=== PATIENT | female | born 1985 | race Caucasian/White ===

== ENCOUNTER 2017-11-19 00:16 | Inpatient (IN) ==
--- NOTE | 2017-11-19 01:00 | Emergency Department Note ---
Disposition Clinical Impression: Cellulitis Qualifiers: Site of cellulitis: extremity Site of cellulitis of extremity: lower extremity Laterality: left Qualified Code(s): L03.116 - Cellulitis of left lower limb Disposition: Admitted As Inpatient Condition: Fair Time of Disposition: 05:24 Skin/Abscess/FB HPI Chief complaint: ED Skin/Abscess/Foreign Body Stated complaint: "MRSA" Time Seen by Provider: 11/19/17 00:42 Source: patient Mode of arrival: ambulatory Limitations: no limitations Nursing Notes Reviewed: Yes Vital Signs Reviewed: Yes HPI Narrative: Patient is a 32-year-old female who presents today due to cellulitis and abscesses of left thigh and left upper extremity. She states that over the past week, she got a tattoo and since then she has been developing small abscesses. She was seen twice within the past week at different facilities and she was prescribed Keflex and Bactrim. She has been taking both Keflex and Bactrim without any improvement. The areas were marked on her leg with a felt marker. She has noticed that the red areas are extending past the marked areas. She is also complaining of worsening pain, worsening swelling. Denies any nausea, vomiting, fevers, diarrhea, abdominal pain, chest pain, shortness of breath. Abscesses were not drained at previous visits. Home Medications Medication Instructions Recorded Confirmed Zoloft 07/21/17 Previous Rx's Medication Instructions Recorded Acetaminophen [Tylenol] 500 mg PO Q6HR PRN #20 tablet 07/21/17 predniSONE [PredniSONE] 20 mg PO BID #10 tablet 07/21/17 Allergies Allergy/AdvReac Type Severity Reaction Status Date / Time aspirin Allergy Swelling Verified 07/21/17 13:50 of Lip/Tongue/Throat Hydromorphone [From Dilaudid] Allergy See Verified 07/21/17 13:50 Comments Penicillins Allergy Swelling Verified 07/21/17 13:50 of Lip/Tongue/Throat All systems ED: reviewed and negative except as stated. Constitutional: Denies: fever Cardiovascular: Denies: chest pain, palpitations Respiratory: Denies: cough, dyspnea, wheezes Gastrointestinal: Denies: abdominal pain, nausea, vomiting, diarrhea Integumentary: Reports: lesions Neurological: Denies: headache, weakness, numbness, paresthesias Past Medical History - Past Medical History Attestation: Yes The following information was validated with the patient. Source: patient Medical history: Reports: fibromyalgia, thyroid disease, other Psychiatric history: Reports: no psych history - Social History Smoking Status: Current every day smoker Smokeless Tobacco Status: No Alcohol use: Reports: none Drug use: Reports: none Physical Exam - General Limitations: no limitations General appearance: alert, in no apparent distress - Head Head exam: atraumatic, normocephalic, normal inspection - Eye Eye exam: Present: normal appearance, PERRL, EOMI - ENT ENT exam: normal exam, normal oropharynx, mucous membranes moist - Neck Neck exam: Present: normal inspection, full ROM, trachea midline - Chest Chest inspection: Present: normal inspection, symmetric chest wall rise - Respiratory Respiratory exam: Present: normal lung sounds bilaterally - Cardiovascular Cardiovascular exam: Present: regular rate, normal rhythm, normal heart sounds - Abdominal Exam Abdominal exam: Present: soft, Non-Tender. Absent: tenderness, distention, guarding, rebound, rigidity - Extremities Exam Extremities exam: Present: full ROM, other (5 abscesses on the left lateral thigh each measuring approximately 1 cm x 1 cm, fluctuance of 3 of the 5. No active pus drainage. Cellulitis surrounding each abscess site extending past skin marker; 1x1cm left UE abscess fluctuance. ) - Neurological Exam Neurological exam: Present: alert, oriented X3 - Psychiatric Psychiatric exam: Present: normal affect, normal mood - Skin Skin exam: Present: warm, dry, intact, normal color, other (see extremity section above) Course Course Narrative: Patient is failing outpatient treatment at this time. She does not meet sepsis criteria. I performed incision and drainage on 4 out of the 6 abscesses. See procedure section for further detail. Patient was started on IV vancomycin and Levaquin. Could not start Zosyn due to allergy to penicillins. Patient was admitted for further care worsening cellulitis with failed outpatient treatment. Vital Signs Temperature 98.0 F 11/19/17 00:18 Pulse Rate 81 11/19/17 00:18 Respiratory Rate 16 11/19/17 00:18 Blood Pressure 116/70 11/19/17 00:18 O2 Sat by Pulse Oximetry 96 11/19/17 00:18 Temperature 98.0 F 11/19/17 03:36 Pulse Rate 63 11/19/17 03:36 Respiratory Rate 16 11/19/17 03:36 Blood Pressure 96/61 11/19/17 03:36 O2 Sat by Pulse Oximetry 96 11/19/17 03:36 Oxygen Delivery Oxygen Delivery Room Air Procedures - Abscess I/D Consent obtained: verbal consent Site: other (left leg, left arm; 3 sites on left thigh, one site on left arm near elbow) Side (if applicable): left Local Anesthetic: lidocaine 1%, with epi Amount of Anesthesia Used (mL): 3 Technique: incised with #11 blade Amount of fluid: 3 Irrigation: Yes Packing used?: none Skin/Abscess/Foreign Body - MDM Narrative Medical decision making narrative: Patient is failing outpatient treatment at this time. She does not meet sepsis criteria. I performed incision and drainage on 4 out of the 6 abscesses. See procedure section for further detail. Patient was started on IV vancomycin and Levaquin. Could not start Zosyn due to allergy to penicillins. Patient was admitted for further care worsening cellulitis with failed outpatient treatment. - Medical Records Medical records reviewed: Yes I reviewed the patient's medical records. - Lab Data Lab results reviewed: Yes I reviewed the patient's lab results. Result diagrams: 11/19/17 01:32 11/19/17 01:32 Lab Results 11/19/17 11/19/17 11/19/17 Range/Units 01:32 01:32 01:32 WBC 8.0 (4.3-11.1) K/mcL RBC 3.94 (3.82-4.97) M/mcL Hgb 13.6 (11.5-15.4) g/dL Hct 38.4 (35.3-44.9) % MCV 97.5 (83.0-100.0) fL MCH 34.5 H (28.0-33.3) pg MCHC 35.4 (31.6-35.5) g/dL RDW 12.5 (11.5-14.5) % Plt Count 161 (140-400) K/mcL MPV 8.8 L (9.4-12.4) fL Immature Gran % 0.2 (0-4) % Seg Neutrophils % 71.4 % Lymphocytes % 17.9 % Monocytes % 7.1 % Eosinophils % 2.9 % Basophils % 0.5 % Neutrophils # 5.7 (1.6-8.9) K/mcL Lymphocytes # 1.4 (0.6-4.6) K/mcL Monocytes # 0.6 (0.0-1.3) K/mcL Eosinophils # 0.2 (0.0-0.6) K/mcL Basophils # 0.0 (0.0-0.2) K/mcL Sodium 137 (136-145) mEq/L Potassium 3.5 (3.5-5.1) mEq/L Chloride 106 (98-107) mEq/L Carbon Dioxide 25 (23-29) mEq/L BUN 7 (6-20) mg/dL Creatinine 0.89 (0.60-1.20) mg/dL Est GFR ( Amer) > 60 (> 60) Est GFR (Non-Af Amer) > 60 (> 60) BUN/Creatinine Ratio 8 (6-26) Glucose 102 (70-105) mg/dL Calculated Osmolality 282 (280-300) Lactic Acid 0.6 (0.5-2.2) mmol/L Calcium 9.3 (8.6-10.3) mg/dL - Radiology Data Radiology results reviewed: Yes I reviewed the patient's radiology results. S.B.A.R. - S.B.A.R. Situation: Demographics, MOA Background: Presenting Complaint, Relevant PMH, Meds, & Allergies Assessment: Vital Signs, Course and respsone to treatment, Exam Concerns, Patient/Family Expectation, Pertinant Lab Results, Outstanding Labs Recommendation: Barrier(s) to disposition, Recommendation based on pending studies, treatments, or consults S.B.A.R. Report Given to: Dr. Schmidt Attestation Statement - Attestation Attestation: I examined this patient and my medical decision-making was reviewed with the Resident Physician. I agree with the documented findings, disposition and treatment plan as described except to the extent set forth below. Abscess and cellulitis following failed outpatient therapy with Keflex and Bactrim. We will start Levaquin as well as vancomycin and admit for further management after bedside I&D of abscesses over the left thigh.
[2017-11-19] MEDS ORDERED: Levofloxacin 750 MG/150 ML 750 MG/150 ML BAG IVPB ONE (01:19)
[2017-11-19] MEDS ORDERED: Lidocaine/EPI 1:100k 1% 20 ML VIAL INFILT ONE (01:39)
[2017-11-19 01:46] LABS: Basophils % 0.5 %; Eosinophils # 0.2 K/mcL (0.0-0.6); Eosinophils % 2.9 %; Hematocrit 38.4 % (35.3-44.9); Hemoglobin 13.6 g/dL (11.5-15.4); Immature Granulocytes % 0.2 % (0-4); Lymphocytes # 1.4 K/mcL (0.6-4.6); Lymphocytes % 17.9 %; Mean Corpuscular HGB Conc 35.4 g/dL (31.6-35.5); Mean Corpuscular Hemoglobin 34.5 pg (28.0-33.3); Mean Corpuscular Volume 97.5 fL (83.0-100.0); Mean Platelet Volume 8.8 fL (9.4-12.4); Monocytes # 0.6 K/mcL (0.0-1.3); Monocytes % 7.1 %; Neutrophils # 5.7 K/mcL (1.6-8.9); Platelet Count 161 K/mcL (140-400); Red Blood Count 3.94 M/mcL (3.82-4.97); Red Cell Distribution Width 12.5 % (11.5-14.5); Segmented Neutrophils % 71.4 %
[2017-11-19 02:07] LABS: BUN/Creatinine Ratio 8 (6-26); Blood Urea Nitrogen 7 mg/dL (6-20); Calcium 9.3 mg/dL (8.6-10.3); Carbon Dioxide 25 mEq/L (23-29); Chloride 106 mEq/L (98-107); Glucose 102 mg/dL (70-105); Osmolality,Calculated 282 (280-300); Potassium 3.5 mEq/L (3.5-5.1); Sodium 137 mEq/L (136-145); eGFR For African Americans > 60 (> 60); eGFR For Non-African Americans > 60 (> 60)
[2017-11-19] MEDS ORDERED: Naloxone 0.4 MG/ML INJ IVP PRN (03:12)
[2017-11-19] MEDS ORDERED: Acetaminophen 325 MG TABLET PO PRN (03:12)
--- NOTE | 2017-11-19 03:17 | Internal Med History&Physical ---
Date of Encounter: 11/19/17 Time of Encounter: 03:13 Internal Medicine - H&P: HPI Chief complaint: Left thigh abscesses Admitted From: Emergency Dept Plans for Post Hospital Care: Home History of present illness: Ms. Dunn is a 32 year old female with history of depression/anxiety who presented to the ED as she has noted worsening of left thigh abscesses. The patient story goes back to about a couple weeks ago when she had a tattoo placed to her left thigh. About 3 days after that she noted a couple of blisters which she squeezed and they opened. She says she scratched her left elbow at the site accidentally and ended up with an abscess at that elbow as well. She saw an urgent care clinic on Monday which is 6 days ago as she noted that the areas have become swollen and erythematous. She was put on Keflex at that time and a couple days later she was switched to Bactrim by her primary care physician. She then noted a couple more abscesses on the left thigh and ended up coming to the ED yesterday and at that point she was told to go back to taking Keflex on top of the Bactrim and blood cultures were drawn which have been negative to date. Today she noted that her abscesses were enlarging and erythema is expanding and came back to the ED where she underwent for I&D of small abscesses of the left thigh as well as an I&D of the left elbow abscess. She was given vancomycin. She was hemodynamically stable and denies any fever at home. Her labs were unremarkable. Patient denies any headache, blurry vision, nausea, vomiting, chest pain, shortness breath, abdominal pain, urinary symptoms, or neurological symptoms Past Med Surg Social Fam HX - Past Medical History Medical history: fibromyalgia, thyroid disease, other Psychiatric history: no psych history - Social History Smoking Status: Current every day smoker Smokeless Tobacco Status: No Alcohol use: none Drug use: none Internal Medicine - H&P: Meds Acetaminophen [Tylenol] 500 mg PO Q6HR PRN #20 tablet 07/21/17 [Rx] Zoloft 07/21/17 [History] predniSONE [PredniSONE] 20 mg PO BID #10 tablet 07/21/17 [Rx] 3 Allergy/AdvReac Type Severity Reaction Status Date / Time aspirin Allergy Swelling Verified 07/21/17 13:50 of Lip/Tongue/Throat Hydromorphone [From Dilaudid] Allergy See Verified 07/21/17 13:50 Comments Penicillins Allergy Swelling Verified 07/21/17 13:50 of Lip/Tongue/Throat All Systems PM: A 10-system review of systems was performed and is negative for pertinent findings except as documented above in the HPI. Review of systems: All systems reviewed are negative except for as mentioned above - Constitutional Vitals: Temp Pulse Resp BP Pulse Ox 98.0 F 78 16 118/74 97 11/19/17 00:57 11/19/17 02:31 11/19/17 02:31 11/19/17 02:31 11/19/17 02:31 Exam: GEN: NAD HEENT: AT, NC, No cyanosis, oral mucosa is moist, No JVD Lymphatics: No lymphadenoapthy Eyes: Extrocular muscles intact, anicteric CVS:RRR. S1, S2, No m/r/g RESP: CTAB ABD: Soft, NT, ND, +BS EXT: No edema, left thigh with 4 areas of erythema and small abscesses of different dimensions up to 6 cm x 4 cm. Those have been drained. They are tender to palpation, 2+ DP NEURO: Nonfocal, CN II-XII intact, No focal motor or sensory deficits Psych: Cooperative, Not anxious or depressed Internal Med - H&P Results - Labs CBC & Chem 7: 11/19/17 01:32 11/19/17 01:32 Labs: Short CBC 11/19/17 Range/Units 01:32 WBC 8.0 (4.3-11.1) K/mcL Hgb 13.6 (11.5-15.4) g/dL Hct 38.4 (35.3-44.9) % Plt Count 161 (140-400) K/mcL Neutrophils # 5.7 (1.6-8.9) K/mcL BMP 11/19/17 01:32 Sodium 137 Potassium 3.5 Chloride 106 Carbon Dioxide 25 BUN 7 Creatinine 0.89 Glucose 102 Calcium 9.3 - Assessment and plan (1) Cellulitis and abscess of left leg Current Visit: No Status: Acute Assessment and plan: Patient is status post I&D's of multiple abscesses. Follow up on wound cultures. Follow up on blood cultures drawn yesterday during her first visit to the ED. We will place the patient on IV vancomycin. (2) Depression Current Visit: Yes Status: Acute Assessment and plan: Continue home Zoloft once verified. Qualifiers: Depression Type: unspecified Qualified Code(s): F32.9 - Major depressive disorder, single episode, unspecified (3) DVT prophylaxis Current Visit: Yes Status: Acute Assessment and plan: SCDs - Time Spent With Patient Total time spent is greater than 50% in coordination of care (as documented) at patient's floor/unit and/or counseling patient:
[2017-11-19 07:15] VITALS: BP 78/48
[2017-11-19] MEDS ORDERED: ceFAZolin 1,000 MG in Water for inj. (sterile) 20 ML 10 ML IVPB SCH (08:06)
[2017-11-19] MEDS ORDERED: Aminoglycoside Consult 1 EACH MC ONE (10:19)
--- NOTE | 2017-11-19 10:28 | Event Note ---
Date of Encounter: 11/19/17 Time of Encounter: 10:26 Evaluated patient. While her wounds which were drained appear to be improving, there is another spot in her left thigh that appears to be developing abscesses. I recommended that she continue IV antibiotics for another day. However patient wishes to leave AMA as she does not have anyone to help with childcare. She does understand the risks of not receiving appropriate antibiotics and advised to return to ER if she gets worse. She will be prescribed oral clindamycin at this time.
== END 2017-11-19 10:20 | disposition left against medical advice (07) | DRG 383 ==
LOC: 3ANU 00:16 → EMEROO 00:16 → 3ANU 03:28
PROVIDERS: ADMIT Family Medicine; ATTEND Family Medicine

== ENCOUNTER → 2021-08-19 17:40 | Observation (INO) | END | disposition home or self-care (01) | LOC: 1NENULAB | PROVIDERS: ADMIT Student in an Organized Health Care Education/Training Program; ATTEND Student in an Organized Health Care Education/Training Program ==

== ENCOUNTER 2021-08-27 08:00 | Inpatient (IN) ==
[2021-08-27] MEDS ORDERED: Clindamycin 900 MG/50 ML 900 MG/50 ML IV.SOLN IVPB ONE (10:05)
[2021-08-27] MEDS ORDERED: Metoclopramide 10 MG/2 ML VIAL IVP ONE (10:05)
[2021-08-27] MEDS ORDERED: Famotidine 20 MG/2 ML VIAL IVP PRN (10:05)
[2021-08-27] MEDS ORDERED: Naloxone 0.4 MG/ML INJ IVP PRN (10:05)
[2021-08-27] MEDS ORDERED: Oxytocin 20 units/ LR 1000 mL 20 UNIT/1,000 ML BAG IVC ONE (10:05)
[2021-08-27] MEDS ORDERED: Famotidine 20 MG/2 ML VIAL IVP ONE (10:05)
[2021-08-27] MEDS ORDERED: Oxytocin 20 units/ LR 1000 mL 20 UNIT/1,000 ML BAG IVC SCH ×2 (10:15→16:19)
[2021-08-27] MEDS ORDERED: Ringers Solution, Lactated 1,000 ML IVC SCH (10:15)
[2021-08-27 11:19] LABS: Basophils % 0.3 %; Eosinophils % 0.2 %; Hematocrit 36.1 % (35.3-44.9); Hemoglobin 12.3 g/dL (11.5-15.4); Immature Granulocytes % 1.1 % (0-4); Immature Platelets 1.6 % (1.1-6.1); Lymphocytes % 10.8 %; Mean Corpuscular HGB Conc 34.1 g/dL (31.6-35.5); Mean Corpuscular Hemoglobin 34.6 pg (28.0-33.3); Mean Corpuscular Volume 101.4 fL (83.0-100.0); Mean Platelet Volume 9.3 fL (9.4-12.4); Monocytes # 0.5 K/mcL (0.0-1.3); Monocytes % 5.3 %; Neutrophils # 7.2 K/mcL (1.6-8.9); Platelet Count 106 K/mcL (140-400); Red Blood Count 3.56 M/mcL (3.82-4.97); Red Cell Distribution Width 12.1 % (11.5-14.5); Segmented Neutrophils % 82.3 %; White Blood Count 8.8 K/mcL (4.3-11.1)
[2021-08-27] MEDS ORDERED: Promethazine 6.25 MG in Water for inj. (sterile) 20 ML IVPB PRN (11:29)
[2021-08-27] MEDS ORDERED: Morphine Sulfate 2 MG/ML SYRINGE IVP PRN (11:29)
[2021-08-27] MEDS ORDERED: Acetaminophen IV 1,000 MG/100 ML BAG IVPB PRN (11:29)
[2021-08-27] MEDS ORDERED: *HR* Labetalol 20 MG/4 ML SYRINGE IVP PRN (11:29)
[2021-08-27] MEDS ORDERED: *HR* OxyCODONE Immed Rel 5 MG TABLET PO PRN ×2 (11:29→16:19)
[2021-08-27] MEDS ORDERED: *HR* FentaNYL (PF) 100 MCG/2 ML VIAL IVP PRN (11:29)
[2021-08-27 11:33] LABS: Amphetamine Screen,Urine Negative ng/mL (Cutoff=1000); Barbiturate Screen,Urine Negative ng/mL (Cutoff=200); Benzodiazepines Screen,Urine Negative ng/mL (Cutoff=200); Cannabinoid Screen,Urine Negative ng/mL (Cutoff = 50); Cocaine Screen,Urine Negative ng/mL (Cutoff= 300); Opiate Screen,Urine Negative ng/mL (Cutoff=300); Phencyclidine Screen,Urine Negative ng/mL (Cutoff=25)
[2021-08-27 11:52] LABS: Influenza A PCR Negative (Negative); Influenza B PCR Negative (Negative); Resp. Syncytial Virus PCR Negative (Negative); SARS-CoV-2 by PCR (In House) Negative (Negative)
[2021-08-27] MEDS ORDERED: Ketamine *HR* 500 MG/10 ML MDV ONE (12:14)
[2021-08-27] MEDS ORDERED: Ondansetron 4 MG/2 ML VIAL ONE (12:15)
[2021-08-27] MEDS ORDERED: Lidocaine -MPF 2% 5 ML VIAL ONE ×2 (12:15→12:46)
[2021-08-27] MEDS ORDERED: *HR* Succinylcholine 200 MG/10 ML VIAL IVP ONE (12:15)
[2021-08-27] MEDS ORDERED: *HR* FentaNYL (PF) 250 MCG/5 ML VIAL ONE (12:16)
[2021-08-27] MEDS ORDERED: *HR* Midazolam HCl 2 MG/2 ML VIAL ONE (12:16)
[2021-08-27] MEDS ORDERED: *HR* Rocuronium Bromide 50 MG/5 ML VIAL ONE (12:27)
[2021-08-27] MEDS ORDERED: Acetaminophen IV 1,000 MG/100 ML BAG IVPB ONE (12:29)
[2021-08-27] MEDS ORDERED: *HR* Oxytocin 10 UNIT/ML VIAL ONE (12:43)
[2021-08-27] MEDS ORDERED: *HR* Ropivacaine/PF 0.5% 20 ML VIAL ONE (12:50)
[2021-08-27] MEDS ORDERED: Ropivacaine/PF 0.2% 20 ML VIAL ONE (12:50)
[2021-08-27] MEDS ORDERED: Ketorolac 30 MG/ML VIAL ONE (13:00)
[2021-08-27] MEDS ORDERED: *HR* HYDROcodone/Acet 5/325 mg TABLET PO PRN (13:15)
[2021-08-27] MEDS ORDERED: metroNIDAZOLE 500 MG TABLET PO SCH (15:00)
[2021-08-27] MEDS ORDERED: Clindamycin 900 MG/50 ML 900 MG/50 ML IV.SOLN IVPB SCH (16:00)
[2021-08-27] MEDS ORDERED: Metoclopramide 10 MG/2 ML VIAL IVP PRN (16:19)
[2021-08-27] MEDS ORDERED: Simethicone 80 MG TAB.CHEW PO PRN (16:19)
[2021-08-27] MEDS ORDERED: Ondansetron 4 MG/2 ML VIAL IVP PRN (16:19)
[2021-08-27] MEDS: Ibuprofen 600 MG TABLET PO SCH ×2 (16:38→18:12)
[2021-08-27] MEDS: Clindamycin 900 MG/50 ML 900 MG/50 ML IV.SOLN IVPB SCH (18:18)
[2021-08-27] MEDS: metroNIDAZOLE 500 MG TABLET PO SCH ×4 (18:20→21:24)
[2021-08-27] MEDS: Acetaminophen 325 MG TABLET PO SCH ×2 (18:25→19:28)
[2021-08-27] MEDS: *HR* HYDROcodone/Acet 5/325 mg TABLET PO PRN ×2 (19:22→23:20)
[2021-08-27] MEDS: MetroNIDAZOLE 500 MG/100 ML 500 MG/100 ML BAG IVPB SCH (23:20)
[2021-08-28] MEDS: *HR* HYDROcodone/Acet 5/325 mg TABLET PO PRN ×5 (03:07→20:09)
[2021-08-28] MEDS: Acetaminophen 325 MG TABLET PO SCH ×3 (03:16→16:27)
[2021-08-28] MEDS: Ibuprofen 600 MG TABLET PO SCH ×3 (03:16→20:08)
[2021-08-28 03:53] LABS: Basophils % 0.1 %; Lymphocytes % 4.7 %; Mean Platelet Volume 9.6 fL (9.4-12.4)
[2021-08-28 03:54] LABS: Hematocrit 29.2 % (35.3-44.9); Hemoglobin 10.5 g/dL (11.5-15.4); Immature Granulocytes % 0.8 % (0-4); Immature Platelets 2.2 % (1.1-6.1); Lymphocytes # 0.8 K/mcL (0.6-4.6); Mean Corpuscular Hemoglobin 36.1 pg (28.0-33.3); Mean Corpuscular Volume 100.3 fL (83.0-100.0); Monocytes # 0.9 K/mcL (0.0-1.3); Monocytes % 5.4 %; Neutrophils # 14.2 K/mcL (1.6-8.9); Platelet Count 107 K/mcL (140-400); Red Blood Count 2.91 M/mcL (3.82-4.97); Red Cell Distribution Width 11.9 % (11.5-14.5)
[2021-08-28] MEDS: Clindamycin 900 MG/50 ML 900 MG/50 ML IV.SOLN IVPB SCH ×2 (05:39→20:15)
[2021-08-28] MEDS: MetroNIDAZOLE 500 MG/100 ML 500 MG/100 ML BAG IVPB SCH ×2 (09:06→16:28)
[2021-08-28] MEDS: Prenatal Vit/FA 1 EACH TABLET PO SCH (09:49)
[2021-08-28 20:36] VITALS: BP 108/68; PULSE 77; TEMP 98.1; O2SAT 100
[2021-08-29] MEDS: Acetaminophen 325 MG TABLET PO SCH (00:10)
[2021-08-29] MEDS: *HR* HYDROcodone/Acet 5/325 mg TABLET PO PRN ×3 (00:10→10:12)
[2021-08-29] MEDS: Ibuprofen 600 MG TABLET PO SCH (04:20)
[2021-08-29] MEDS: Prenatal Vit/FA 1 EACH TABLET PO SCH (10:12)
== END 2021-08-29 11:35 | disposition home or self-care (01) | DRG 539 ==
LOC: 1NENULAB 09:28 → 1NENUOBS 16:17
PROVIDERS: ADMIT Obstetrics & Gynecology; ATTEND Obstetrics & Gynecology